=== PATIENT | female | born 1985 | race African-American/Black ===

== ENCOUNTER 2019-06-17 14:26 | Emergency (ER) | payer OTHER ==
[~2019-06-17] VITALS: Ht 162.6 cm; Wt 59.9 kg
[2019-06-17 14:30] VITALS: BP 112/74; Ht 162.6 cm; Wt 59.9 kg
== END 2019-06-17 15:20 | disposition home or self-care (01) ==
LOC: ED 14:26
DX: H11.31 Conjunctival hemorrhage, right eye (principal); R11.10 Vomiting, unspecified